=== PATIENT | female | born 1960 | race Asian ===

== ENCOUNTER 2020-07-30 11:46 | Emergency (ER) | payer MEDICAID, OTHER ==
[~2020-07-30] VITALS: Ht 160 cm; Wt 72.7 kg
[~2020-07-30 11:46] MED LIST: ATOR10TA69 PO; MULT-264 PO; NITR0.4T PO; OMEG-53 PO; VALS80TA2 PO
[2020-07-30] MEDS ORDERED: ACETAMINOPHEN 500 MG TABLET PO ONE (12:15)
[2020-07-30] MEDS ORDERED: IBUPROFEN 600 MG TABLET PO ONE (12:15)
[2020-07-30 12:22] LABS: GLUCOSE,POINT OF CARE 191 MG/DL (70-110)
[2020-07-30 12:30] LABS: BASOPHILS % (AUTO) 0.9 % (0.0-2.0); EOSINOPHILS % (AUTO) 2.2 % (1.0-6.0); HEMATOCRIT 41.1 % (36-46); HEMOGLOBIN 13.6 g/dL (12.0-16.0); LYMPHOCYTES % (AUTO) 32.9 % (22.0-44.0); MEAN CORPUSCULAR HEMOGLOBIN 27.7 pg (26.0-34.0); MEAN CORPUSCULAR HGB CONC 33.1 G/dL (31.0-37.0); MEAN CORPUSCULAR VOLUME 84 fL (80-100); MONOCYTES # (AUTO) 0.8 K/uL (0.1-1.0); MONOCYTES % (AUTO) 8.6 % (2.0-9.0); NEUTROPHILS % (AUTO) 55.4 % (40.0-70.0); PLATELET COUNT (AUTO) 238 K/uL (150-450); RED BLOOD CELL COUNT(AUTO) 4.92 MIL/uL (4.00-5.20); RED CELL DISTRIBUTION WIDTH 13.4 % (11.5-14.5)
[2020-07-30 13:27] LABS: ANION GAP 13 mmol/L (8-16); CALCIUM, TOTAL 8.9 mg/dL (8.8-10.5); CARBON DIOXIDE 23 mmol/L (22-29); CHLORIDE 104 mmol/L (98-107); CREATININE 0.89 mg/dL (0.60-1.30); GLOMERULAR FILTR. RATE CALC > 60 mL/min (>60); GLUCOSE,RANDOM 175 mg/dL (70-110); POTASSIUM 3.6 mmol/L (3.5-5.1); SODIUM SERUM 140 mmol/L (136-145); UREA NITROGEN, BLOOD 11 mg/dL (7-18)
[2020-07-30 13:32] LABS: ALANINE AMINOTRANSFERASE 30 U/L (12-78); ALBUMIN 3.9 g/dL (3.4-5.0); ALKALINE PHOSPHATASE 98 U/L (46-116); ASPARTATE AMINOTRANSFERASE 22 U/L (15-37); BILIRUBIN,TOTAL 0.5 mg/dL (0.1-1.0); TOTAL PROTEIN, SERUM 7.9 g/dL (6.4-8.2); URIC ACID 6.3 mg/dL (2.6-7.2)
[2020-07-30 14:00] VITALS: BP 127/69
== END 2020-07-30 14:08 | disposition home or self-care (01) ==
LOC: EMS 11:51
DX: M19.072 Primary osteoarthritis, left ankle and foot (principal); E11.65 Type 2 diabetes mellitus with hyperglycemia; I10 Essential (primary) hypertension; E11.9 Type 2 diabetes mellitus without complications; I25.2 Old myocardial infarction; E78.00 Pure hypercholesterolemia, unspecified; F17.210 Nicotine dependence, cigarettes, uncomplicated; Z79.899 Other long term (current) drug therapy
CPT/HCPCS: 84550

== ENCOUNTER 2024-01-24 08:19 | Emergency (ER) | payer MEDICAID ==
[~2024-01-24] VITALS: Ht 149.9 cm; Wt 59.1 kg
[2024-01-24 08:35] VITALS: TEMP 98.1
[2024-01-24] MEDS ORDERED: LOSA-382 PO (09:11)
[2024-01-24] MEDS ORDERED: ATOR20TA65 PO (09:11)
[2024-01-24] MEDS ORDERED: METF-444 PO (09:11)
[2024-01-24] MEDS: VALSARTAN 80 MG TABLET PO ONE (09:14)
[2024-01-24] MEDS: ONDANSETRON HCL 4 MG/2 ML VIAL IVP ONE (09:14)
[2024-01-24] MEDS: MECLIZINE HCL 25 MG TABLET PO ONE (09:14)
[2024-01-24] MEDS ORDERED: MECL-302 PO (10:55)
[2024-01-24 11:00] VITALS: BP 135/68; PULSE 60; RESP 14
== END 2024-01-24 11:41 | disposition home or self-care (01) ==
LOC: EMS 08:19
DX: H81.399 Other peripheral vertigo, unspecified ear (principal); E11.9 Type 2 diabetes mellitus without complications; I10 Essential (primary) hypertension; F17.210 Nicotine dependence, cigarettes, uncomplicated
CPT/HCPCS: 99283; 96374; 82962; 93005; J2405

== ENCOUNTER 2024-02-13 12:53 | Emergency (ER) | payer MEDICAID ==
[~2024-02-13] VITALS: Ht 154.9 cm; Wt 60.4 kg
[~2024-02-13 12:53] MED LIST changes: -ATOR10TA69 PO; +ATOR20TA65 PO; +LOSA-382 PO; +MECL-302 PO; +METF-444 PO; -MULT-264 PO; -NITR0.4T PO; -OMEG-53 PO; -VALS80TA2 PO
[2024-02-13 12:59] VITALS: BP 123/66; PULSE 79; RESP 18; TEMP 97.7
[2024-02-13 13:43] LABS: BASOPHILS % (AUTO) 0.6 % (0.0-2.0); EOSINOPHILS % (AUTO) 3.2 % (1.0-6.0); HEMATOCRIT 44.5 % (36-46); HEMOGLOBIN 14.5 g/dL (12.0-16.0); LYMPHOCYTES # (AUTO) 3.1 K/uL (1.0-4.8); LYMPHOCYTES % (AUTO) 32.4 % (22.0-44.0); MEAN CORPUSCULAR HEMOGLOBIN 27.7 pg (26.0-34.0); MEAN CORPUSCULAR HGB CONC 32.5 G/dL (31.0-37.0); MEAN CORPUSCULAR VOLUME 85 fL (80-100); MONOCYTES # (AUTO) 0.8 K/uL (0.1-1.0); MONOCYTES % (AUTO) 8.5 % (2.0-9.0); NEUTROPHILS # (AUTO) 5.3 K/uL (1.8-7.7); NEUTROPHILS % (AUTO) 55.3 % (40.0-70.0); PLATELET COUNT (AUTO) 241 K/uL (150-450); RED BLOOD CELL COUNT(AUTO) 5.23 MIL/uL (4.00-5.20); RED CELL DISTRIBUTION WIDTH 13.4 % (11.5-14.5); WHITE BLOOD COUNT (AUTO) 9.6 K/uL (4.5-11.0)
[2024-02-13 13:51] LABS: CALCIUM, TOTAL 9.1 mg/dL (8.8-10.5); CREATININE 1.04 mg/dL (0.60-1.30); POTASSIUM 3.9 mmol/L (3.5-5.1)
[2024-02-13 14:00] LABS: TROPONIN I-HIGH SENSITIVITY 148 ng/L (<51)
[2024-02-13] MEDS ORDERED: IBUP-1554 PO (14:34)
== END 2024-02-13 14:53 | disposition home or self-care (01) ==
LOC: EMS 12:53
DX: S20.212A Contusion of left front wall of thorax, initial encounter (principal); S70.02XA Contusion of left hip, initial encounter; R79.89 Other specified abnormal findings of blood chemistry; E11.9 Type 2 diabetes mellitus without complications; E78.00 Pure hypercholesterolemia, unspecified; I10 Essential (primary) hypertension; F17.210 Nicotine dependence, cigarettes, uncomplicated; Z98.890 Other specified postprocedural states; V89.2XXA Person injured in unspecified motor-vehicle accident, traffic, initial encounter; Y93.89 Activity, other specified; Y92.89 Other specified places as the place of occurrence of the external cause; Y99.8 Other external cause status
CPT/HCPCS: 71101; 73503; 80048; 84484; 85025; 93005; 99285